=== PATIENT | female | born 1950 | race African-American/Black ===

== ENCOUNTER → 2019-07-24 | Outpatient (CLI) | payer MEDICARE, BC ==
--- NOTE | 2019-07-24 10:32 | XR ---
EXAMINATION TYPE: XR foot complete RT DATE OF EXAM: 07/24/2019 CLINICAL HISTORY: Nontraumatic right lower extremity pain including the right foot in the arch of the foot. TECHNIQUE: Frontal, lateral, and oblique images of the right foot are obtained. COMPARISON: None FINDINGS: There is no acute fracture/dislocation evident in the right foot. The joint spaces in the right foot appear aligned. Postoperative changes at the first metatarsophalangeal joint. Osseous pro liferation of the distal interphalangeal joints with overhanging edges. Small plantar heel spur. Mild bony productive change of the dorsal hindfoot and midfoot. The overlying soft tissue appears unrema rkable. IMPRESSION: 1. No acute fracture or dislocation in the right foot. 2. Mild arthropathy of the hindfoot, midfoot, and forefoot. 3. Small plantar heel spur. 4. Postoperative changes of the first metatarsal phalangeal joint.
== END | disposition home or self-care (01) ==
LOC: RADXRMAIN 09:42
PROVIDERS: ATTEND Podiatrist Foot Surgery
DX: M19.071 Primary osteoarthritis, right ankle and foot (principal); M77.31 Calcaneal spur, right foot

== ENCOUNTER → 2019-11-15 | Outpatient (CLI) | payer MEDICARE ==
--- NOTE | 2019-11-16 13:45 | MR ---
MR right hand without and with contrast HISTORY: Palpable masses palmar surface of the hand Multiplanar multisequence and postcontrast images obtained through the right hand following 10 cc Lenny avist IV Correlation plain film 10/30/2019 The patient's palmar masses were marked with an overlying markers. The site of patient's palpable mass is there isn't a focus at the hyperthenar location which shows a measurement of approximately 3.1 x 2.8 x 1.8 cm which is isointense to fat. Some internal septations are present. Additionally at the level of the wrist there are multiple foci with similar signal marielle cteristics all measuring subcentimeter in size, multiple foci present on axial image #9. Distal to th e sizable mass there is additional focus measuring 15 mm in diameter on axial image #16. Each of the lesions is in the subcutaneous fat region, there is no evident involvement of the flexor tendons, les ions are superficial to the tendons and neurovascular bundle. No abnormal enhancement following contr ast administration. Bone marrow signal is maintained. IMPRESSION: Findings consistent with lipomas.
== END | disposition home or self-care (01) ==
LOC: RADMRIMAIN 10:47
PROVIDERS: ATTEND Orthopaedic Surgery
DX: M25.531 Pain in right wrist (principal); M79.641 Pain in right hand
CPT/HCPCS: 73220; A9585